=== PATIENT | male | born 1950 | race Caucasian/White ===

== ENCOUNTER → 2019-10-24 09:51 | Outpatient (CLI) | payer MEDICARE, OTHER, SELFPAY ==
[2019-10-24 10:41] LABS: Add Manual Diff / Slide Review NO; Basophils Absolute Auto 100 /uL (0-100); Basophils Percent Auto 1.3 % (0-2); Eosinophils Absolute Auto 100 /uL (0-450); Eosinophils Percent Auto 1.9 % (2-4); Hematocrit 38.5 % (41-53); Hemoglobin 13.2 g/dL (13.5-17.5); Lymphocytes Absolute Auto 700 /uL (1100-4500); Lymphocytes Percent Auto 16.6 % (25-40); Mean Corpuscular HGB Conc 34.4 % (30-36); Mean Corpuscular Hemoglobin 31.7 PG (26-34); Mean Corpuscular Volume 92.2 fL (80-100); Monocytes Absolute Auto 300 /uL (0-900); Monocytes Percent Auto 6.7 % (3-14); Neutrophils Absolute Auto 3100 /uL (1500-7000); Neutrophils Percent Auto 73.5 % (50-75); Platelet Count 150 X10^3/uL (150-400); Red Blood Cell Count 4.17 X10^6/uL (4.5-5.9); Red Cell Distribution Width 14.8 % (11.6-14.8); White Blood Cell Count 4.3 X10^3/uL (4.5-11.0)
[2019-10-24 10:45] LABS: Appearance Urine UA CLEAR; Bilirubin Urine UA NEGATIVE (NEGATIVE); Color Urine UA YELLOW; Glucose Urine UA NEGATIVE (Negative); Ketones Urine UA NEGATIVE (NEGATIVE); Leukocyte Esterase Urine UA NEGATIVE (NEGATIVE); Nitrite Urine UA NEGATIVE (Negative); Occult Blood Urine UA 1+ (Negative); Protein Urine UA NEGATIVE (Negative); Specific Gravity Urine UA 1.015 (1.000-1.035); Urobilinogen Urine UA 0.2 E.U./dL (0.2)
[2019-10-24 10:50] LABS: Hemoglobin A1C% w Est Avg Glu 7.6 % (4.0-6.0)
[2019-10-24 10:54] LABS: Blood Urea Nitrogen 18 mg/dL (9-20); Calcium 9.5 mg/dL (8.4-10.2); Carbon Dioxide 25 mmol/L (22-32); Chloride 104 mmol/L (98-107); Estimated Glomerular Filt Rate > 60.0 mL/min (>60); Glucose 195 mg/dL (80-110); HEMOLYSIS < 15 (0-50); Potassium 3.9 mmol/L (3.4-5.1); Sodium 139 mmol/L (137-145)
[2019-10-24 11:26] LABS: Bacteria Urine Occasional (0-1); Culture Indicated Urine Cult Not Indicated; Mucus Urine 1+ (Negative); RBC Urine 0-1/HPF (0-5/HPF); WBC Urine 1-5/HPF (0-5/HPF)
== END ==
PROVIDERS: PCP Family Medicine; Visit Provider Orthopaedic Surgery
DX: Z01.818 Encounter for other preprocedural examination (principal); Z01.812 Encounter for preprocedural laboratory examination; N39.9 Disorder of urinary system, unspecified; Z13.1 Encounter for screening for diabetes mellitus; R73.9 Hyperglycemia, unspecified
CPT/HCPCS: 36415; 80048; 81001; 83036; 85025; 93005

== ENCOUNTER → 2019-10-28 10:22 | Outpatient (CLI) | payer MEDICARE, OTHER, SELFPAY ==
--- NOTE | 2019-10-28 | DI.MRI.S_ITS ---
PROCEDURE: MR KNEE LT WO CON INDICATIONS: Unilateral primary osteoarthritis, left knee TECHNIQUE: Noncontrast sagittal PD fast spin echo and T2 fast spin echo with fat saturation, sagittal 3-D FLASH with fat saturation; coronal T1 spin echo and PD fast spin echo with fat saturation, and axial PD fast spin echo with fat saturation through the knee. COMPARISON: [facility] [place], CR, XR KNEE ARTHRITIC SERIES LT, 10/23/2019, 13:32. FINDINGS: Image quality: There is mild motion artifact. Menisci: There is moderate to severe degenerative tearing of the medial meniscus primarily within the meniscal body involving the inferior articular surface as well as within the posterior horn which demonstrates a focal radial tear. There is mild peripheral extrusion of the medial meniscus. The meniscal root ligament demonstrate mild partial tearing without rupture. The lateral meniscus demonstrates mild degenerative tearing with involvement of the inferior articular surface in the posterior horn. Cruciate ligaments: The anterior cruciate ligament is mildly attenuated suggesting sequela of a prior mild to moderate sprain. The majority of the fibers appear intact. Posterior cruciate ligament is intact. Medial structures: The medial collateral ligament is mildly attenuated suggesting sequela of a prior sprain. There is a multiloculated fluid collection tracking along the medial capsule encasing the medial collateral ligament consistent with a ganglion cyst or meniscal cyst. The semimembranosus tendon insertions and meniscocapsular junction appear intact. Visualized portions of the pes anserinus tendons appear intact. There is mild heterogeneous edema within the medial head of the gastrocnemius. Lateral structures: The lateral collateral ligament, long and short heads of the biceps femoris tendon appear intact. The popliteus tendon appears intact. Iliotibial band appears normal. Anterior structures: The quadriceps and patellar tendons appear intact. Patellar alignment is normal. No femoral trochlear dysplasia or ventral trochlear prominence. No edema in the infrapatellar fat pad. Bones and cartilage: No bone marrow contusions or fractures. There is extensive tricompartmental osteophytosis including osteophytes along the articular surfaces of the medial femoral condyle. There is moderate to severe cartilage thinning in the medial compartment with areas of apparent full-thickness cartilage loss associated with foci of subchondral edema. In the lateral compartment, there is mild cartilage thinning with chondral fissuring. In the patellofemoral compartment, there is moderate to severe cartilage thinning with chondral fissuring and subchondral edema most prominent laterally. Joint space: There is physiologic knee joint fluid. No Castañeda's cyst. Normal appearing synovial plicae are incidentally noted. IMPRESSION: 1. Degenerative tearing of the menisci, moderate to severe medially and mild laterally. 2. Tricompartmental osteoarthritic changes, most severe in the medial compartment. 3. Attenuated appearance of the ACL suggesting sequela of prior mild to moderate sprain. The majority of the fibers appear intact. 4. Attenuation of the MCL likely represent sequela from prior sprain. 5. Lobulated cyst along the medial joint capsule encasing the MCL consistent with a ganglion or parameniscal cyst. 6. Mild heterogeneous edema within the medial head of the gastrocnemius muscle is nonspecific. Differential considerations include sequelae of a strain or possible vascular process such as venous thrombosis. If there is clinical suspicion for thrombosis, further evaluation may be obtained with a Doppler ultrasound. Dictated by: Zak Quesada M.D. on 10/30/2019 at 8:54 Approved by: Zak Quesada M.D. on 10/30/2019 at 9:33
== END ==
PROVIDERS: PCP Family Medicine; Visit Provider Orthopaedic Surgery
DX: M17.12 Unilateral primary osteoarthritis, left knee (principal); M23.222 Derangement of posterior horn of medial meniscus due to old tear or injury, left knee; M23.252 Derangement of posterior horn of lateral meniscus due to old tear or injury, left knee; M25.862 Other specified joint disorders, left knee; M25.462 Effusion, left knee
CPT/HCPCS: 73721